=== PATIENT | female | born 1935 | race Caucasian/White ===

== ENCOUNTER → 2021-03-12 | Outpatient (CLI) | payer MEDICARE | END | disposition home or self-care (01) | LOC: RAH 14:46 | PROVIDERS: ATTEND Otolaryngology Plastic Surgery within the Head & Neck | DX: J32.8 Other chronic sinusitis (principal); I10 Essential (primary) hypertension | CPT/HCPCS: 70486 ==

== ENCOUNTER → 2021-04-10 | Outpatient (CLI) | payer MEDICARE | END | disposition home or self-care (01) | LOC: RAH 08:24 | PROVIDERS: ATTEND Student in an Organized Health Care Education/Training Program | DX: K22.2 Esophageal obstruction (principal); R13.10 Dysphagia, unspecified; Z93.1 Gastrostomy status | CPT/HCPCS: 74230; 92611 ==

== ENCOUNTER 2021-04-29 06:41 | Day surgery (SDC) | payer MEDICARE ==
[2021-04-16 12:22] LABS: BASOPHILS % (AUTO) 0.5 % (0.0-5.0); EOSINOPHILS % (AUTO) 2.4 % (0.0-8.0); HEMATOCRIT 35.9 % (36-48); LYMPHOCYTES % (AUTO) 17.9 % (21.0-51.0); MEAN CORPUSCULAR HEMOGLOBIN 30.5 pg (27.0-33.0); MEAN CORPUSCULAR HGB CONC 31.5 g/dL (32.0-36.0); MONOCYTES % (AUTO) 13.6 % (3.0-13.0); NEUTROPHILS % (AUTO) 65.2 % (40.0-77.0); PLATELET COUNT (AUTO) 661 K/uL (130-400); RED CELL DISTRIBUTION WIDTH 14.8 % (11.0-15.5); WHITE BLOOD COUNT (AUTO) 11.3 K/uL (4.8-10.8)
[2021-04-16 12:46] LABS: CREATININE 1.2 mg/dL (0.5-1.5); POTASSIUM 5.2 mmol/L (3.5-5.1)
[2021-04-21 15:03] VITALS: BP 168/92
[2021-04-29] VITALS (25 sets, daily range): BP systolic 107–220; BP diastolic 29–96
[~2021-04-29] VITALS: Ht 162.6 cm; Wt 61.5 kg
[~2021-04-29 06:41] MED LIST: AEC81 PO; ATOR10 PO; CLOP75TA32 PO; DOXY200T8 PO; LEVO137C4 PO; LOSA50TA64 PO; METO100T14 PO; URSO500T10 PO; VITAMIN C PO
[2021-04-29] MEDS ORDERED: LACTATED RINGERS 1000ML 1,000 ML IV ONE (07:45)
[2021-04-29] MEDS ORDERED: OXYMETAZOLINE HCL SPRAY 15 ML BOTTLE ONE (08:22)
[2021-04-29] MEDS ORDERED: LIDOCAINE 1%-EPI 1:100,000 20 ML VIAL IJ SCH (08:30)
[2021-04-29] MEDS ORDERED: EPINEPHRINE 1 MG/ML 30ML VIAL IJ ONE (08:52)
[2021-04-29] MEDS ORDERED: BACITRACIN 28.4 GM OINT TP ONE (08:52)
[2021-04-29] MEDS ORDERED: LIDOCAINE PF 100MG/5ML (2%) SYRINGE 5ML ONE (09:00)
[2021-04-29] MEDS ORDERED: ROCURONIUM 10MG/1ML SYR 10 MG/ML ML ONE (09:01)
[2021-04-29] MEDS ORDERED: PROPOFOL 10 MG/ML 20ML VIAL IV ONE (09:01)
[2021-04-29] MEDS ORDERED: FENTANYL CITRATE PF 50 MCG/1 ML 2ML VIAL ONE (09:01)
[2021-04-29] MEDS ORDERED: ONDANSETRON 4MG INJ ONE (09:02)
[2021-04-29] MEDS ORDERED: ARTIFICIAL TEARS 3.5 GM OINTMENT ONE (09:26)
[2021-04-29] MEDS ORDERED: EPHEDRINE SULFATE 50 MG/ML AMPULE ONE (09:40)
[2021-04-29] MEDS ORDERED: GLYCOPYRROLATE 1 MG/5 ML SYRINGE ONE (10:24)
[2021-04-29] MEDS ORDERED: NEOSTIGMINE 5MG/5ML SYR IV ONE (10:25)
[2021-04-29] MEDS ORDERED: HYDRALAZINE 20MG/ML VIAL ONE (10:36)
== END 2021-04-29 15:40 | disposition home or self-care (01) ==
LOC: DAH 06:41
PROVIDERS: ATTEND Otolaryngology Plastic Surgery within the Head & Neck
DX: J34.3 Hypertrophy of nasal turbinates (principal); Z20.822 Contact with and (suspected) exposure to COVID-19; J34.2 Deviated nasal septum; J34.89 Other specified disorders of nose and nasal sinuses; J32.9 Chronic sinusitis, unspecified; J33.8 Other polyp of sinus; J32.4 Chronic pansinusitis; J34.1 Cyst and mucocele of nose and nasal sinus; J32.0 Chronic maxillary sinusitis; Z88.0 Allergy status to penicillin; Z86.73 Personal history of transient ischemic attack (TIA), and cerebral infarction without residual deficits
CPT/HCPCS: 30140; 31253; 31257; 31267; 36415; 80048; 85025; 87070; 87076; 87077; 87186; 87205; 87635; 93005; A4215; A4221; A4222; A4223; A4649; A4663; A6260; C9803; J0360; J2001; J2405; J2704; J2710; J3010; J3490 ×3; J7120; J0171

== ENCOUNTER 2021-05-21 11:45 | Day surgery (SDC) | payer MEDICARE ==
[2021-05-07 12:51] LABS: BASOPHILS % (AUTO) 0.6 % (0.0-5.0); EOSINOPHILS % (AUTO) 2.8 % (0.0-8.0); HEMATOCRIT 30.8 % (36-48); LYMPHOCYTES % (AUTO) 16.2 % (21.0-51.0); MEAN CORPUSCULAR HEMOGLOBIN 30.7 pg (27.0-33.0); MEAN CORPUSCULAR HGB CONC 31.5 g/dL (32.0-36.0); MEAN CORPUSCULAR VOLUME 97.5 fL (79-99); MONOCYTES % (AUTO) 17.5 % (3.0-13.0); NEUTROPHILS % (AUTO) 62.3 % (40.0-77.0); PLATELET COUNT (AUTO) 596 K/uL (130-400); RED BLOOD CELL COUNT(AUTO) 3.16 MIL/uL (4.00-5.50); RED CELL DISTRIBUTION WIDTH 14.5 % (11.0-15.5); WHITE BLOOD COUNT (AUTO) 12.3 K/uL (4.8-10.8)
[2021-05-07 13:08] LABS: CREATININE 0.9 mg/dL (0.5-1.5); POTASSIUM 4.8 mmol/L (3.5-5.1)
[2021-05-13 12:54] VITALS: BP 175/92
[~2021-05-21] VITALS: Ht 162.6 cm; Wt 62.1 kg
[~2021-05-21 11:45] MED LIST changes: +0.9% NACL 500ML IV.SOLN 500 ML IV SCH; +CLINDAMYCIN IVPB 900MG/50ML 50 ML IV SCH; -METO100T14 PO; +METO25TA6 PO; -URSO500T10 PO
[2021-05-21 12:50] VITALS: BP 176/67
[2021-05-21 13:12] VITALS: BP 200/98
[2021-05-21] MEDS ORDERED: DIATR MEGLU/DIATRIZOATE SODIUM 30 ML BOTTLE ONE (13:16)
[2021-05-21 13:17] VITALS: BP 189/88
[2021-05-21 13:22] VITALS: BP 176/76
[2021-05-21] MEDS ORDERED: BACITRACIN 28.4 GM OINT TP SCH (13:30)
== END 2021-05-21 14:00 | disposition home or self-care (01) ==
LOC: DAH 11:45
PROVIDERS: ATTEND Student in an Organized Health Care Education/Training Program
DX: K94.23 Gastrostomy malfunction (principal); Z20.822 Contact with and (suspected) exposure to COVID-19; R13.10 Dysphagia, unspecified; I10 Essential (primary) hypertension; Z90.710 Acquired absence of both cervix and uterus; Z90.49 Acquired absence of other specified parts of digestive tract; Z87.891 Personal history of nicotine dependence; Z80.9 Family history of malignant neoplasm, unspecified; Z88.0 Allergy status to penicillin; Z79.82 Long term (current) use of aspirin
CPT/HCPCS: 36415; 43762; 71045; 74018; 80048; 85025; 87426; 93005; A4215; A4221; A4222; A4223; A4606; A4620; A4657; A4663; A6260; B4082; Q9963; J3490

== ENCOUNTER 2021-06-06 07:13 | Day surgery (SDC) | payer MEDICARE ==
[2021-06-03 14:04] LABS: BASOPHILS % (AUTO) 0.4 % (0.0-5.0); EOSINOPHILS % (AUTO) 3.2 % (0.0-8.0); HEMATOCRIT 29.3 % (36-48); LYMPHOCYTES % (AUTO) 19.5 % (21.0-51.0); MEAN CORPUSCULAR HEMOGLOBIN 28.4 pg (27.0-33.0); MEAN CORPUSCULAR HGB CONC 30.4 g/dL (32.0-36.0); MEAN CORPUSCULAR VOLUME 93.6 fL (79-99); NEUTROPHILS % (AUTO) 60.5 % (40.0-77.0); PLATELET COUNT (AUTO) 643 K/uL (130-400); RED BLOOD CELL COUNT(AUTO) 3.13 MIL/uL (4.00-5.50); RED CELL DISTRIBUTION WIDTH 13.8 % (11.0-15.5); WHITE BLOOD COUNT (AUTO) 11.2 K/uL (4.8-10.8)
[2021-06-03 14:24] LABS: ALBUMIN 2.9 g/dL (3.5-5.0); BILIRUBIN,TOTAL 0.2 mg/dL (0.2-1.0); CREATININE 0.9 mg/dL (0.5-1.5); POTASSIUM 5.7 mmol/L (3.5-5.1); TOTAL PROTEIN, SERUM 7.5 g/dL (6.0-8.3)
[~2021-06-06] VITALS: Ht 162.6 cm; Wt 60.1 kg
[2021-06-06] VITALS (13 sets, daily range): BP systolic 125–206; BP diastolic 53–79
[~2021-06-06 07:13] MED LIST changes: -0.9% NACL 500ML IV.SOLN 500 ML IV SCH; -CLINDAMYCIN IVPB 900MG/50ML 50 ML IV SCH
[2021-06-06] MEDS ORDERED: 0.9%NACL 1000ML 1,000 ML IV SCH (08:00)
[2021-06-06] MEDS ORDERED: GLYCOPYRROLATE 1 MG/5 ML SYRINGE ONE (08:50)
[2021-06-06] MEDS ORDERED: PROPOFOL 10 MG/ML 20ML VIAL IV ONE ×2 (08:50→09:02)
[2021-06-06] MEDS ORDERED: LIDOCAINE PF 100MG/5ML (2%) SYRINGE 5ML ONE (08:50)
[2021-06-06] MEDS ORDERED: ATROPINE 1MG SYG IVP ONE (08:50)
[2021-06-06] MEDS ORDERED: SUCCINYLCHOLINE 200MG/10ML SYR ONE (08:50)
[2021-06-06] MEDS ORDERED: PHENYLEPHRINE HCL 10 MG/ML 1ML VIAL IV ONE (08:52)
== END 2021-06-06 10:15 | disposition home or self-care (01) ==
LOC: DAH 07:13
PROVIDERS: ATTEND Student in an Organized Health Care Education/Training Program
DX: K94.23 Gastrostomy malfunction (principal); I12.0 Hypertensive chronic kidney disease with stage 5 chronic kidney disease or end stage renal disease; N18.6 End stage renal disease; E78.5 Hyperlipidemia, unspecified; Z86.73 Personal history of transient ischemic attack (TIA), and cerebral infarction without residual deficits; Z79.82 Long term (current) use of aspirin; Z79.899 Other long term (current) drug therapy
CPT/HCPCS: 36415; 43246; 80053; 85025; 87635; A4215 ×2; A4221; A4222; A4223; A4606; A4620; A4657; A4663; A6260; C9803; J0330; J0461; J2001; J2370; J2704 ×2; J3490; J7030